=== PATIENT | male | born 1940 | race Caucasian/White ===

== ENCOUNTER 2019-04-26 15:18 | Emergency (ER) | payer MEDICARE, MEDICAID ==
[2019-04-26] MEDS ORDERED: Sodium Chloride 0.9% 10 ML Syringe FLUSH PRN (15:23)
[2019-04-26] MEDS ORDERED: methylPREDNISolone Sodium Succinate 125 MG/2 ML SDV IVPUSH ONE (15:23)
[2019-04-26] MEDS ORDERED: Sodium Chloride 0.9% 1,000 ML IV ONE (15:23)
[2019-04-26] MEDS ORDERED: Sodium Chloride 0.9% 2.5 ML Syringe FLUSH PRN (15:23)
[2019-04-26] MEDS ORDERED: Albuterol/Ipratropium 3.0-0.5 MG/3 ML Neb Soln NEB ONE ×3 (15:23→16:31)
[2019-04-26] MEDS ORDERED: Albuterol/Ipratropium 3.0-0.5 MG/3 ML Neb Soln ONE (15:24)
--- NOTE | 2019-04-26 15:29 | EDM.PDOC ---
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 Patient states he usually gets steroids and has not been on steroids for quite a long time. Review of systems: As per history of present illness and below otherwise all systems reviewed and negative. Past medical history: As per history of present illness and as reviewed below otherwise noncontributory. Surgical history: As per history of present illness and as reviewed below otherwise noncontributory. Social history: No reported history of drug or alcohol abuse. Family history: As per history of present illness and as reviewed below otherwise noncontributory. Physical exam: General: Well developed, well nourished in NAD HEENT: Atraumatic, normocephalic, pupils reactive, negative for conjunctival pallor or scleral icterus, mucous membranes moist, throat clear, neck supple, nontender, trachea midline. Lungs: Clear to auscultation, breath sounds equal bilaterally, chest nontender. Heart: S1S2, regular, negative for clicks, rubs, or JVD. Abdomen: NABS, Soft, nondistended, nontender. Negative for masses or hepatosplenomegaly. Negative for costovertebral tenderness. Pelvis: Stable nontender. Genitourinary: Deferred. Rectal: Deferred. Extremities: Atraumatic, negative for cords or calf pain. Neurovascular unremarkable. Neuro: Awake, alert, oriented. Cranial nerves II through XII unremarkable. Cerebellum unremarkable. Motor and sensory unremarkable throughout. Exam nonfocal. Skin:warm and dry Diagnostics: EKG, chest x-ray, CBC, chemistry, troponin Therapeutics: DuoNeb, Solu-Medrol, IV fluids, albuterol ED Course: improved-she prefers to go home rather than be admitted for observation Impression: OPD exacerbation Prescriptions: prednisone 20 mg 5 day burst Plan: Take meds as directed, follow up with your primary care physician, return to ER if symptoms worsen or change. Definitive disposition and diagnosis as appropriate pending reevaluation and review of above. - Related Data Allergies Allergy/AdvReac Type Severity Reaction Status Date / Time No Known Allergies Allergy Verified 04/26/19 15:24 Home Meds: Home Meds Albuterol [Ventolin HFA] 2 puff INH Q4H PRN 04/26/19 [History] Fluticasone/Vilanterol [Breo Ellipta 200-25 MCG Inhalation Kit] 1 puff BID 04/26 [History] Simvastatin 10 mg PO DAILY 04/26/19 [History] predniSONE [Prednisone] 20 mg PO DAILY #5 tablet 04/26/19 [Rx] ED ROS GENERAL - Review of Systems Review Of Systems: See Below ED EXAM, GENERAL - Physical Exam Exam: See Below Course - Vital Signs Last Recorded V/S: Last Vital Signs Temp 98.4 F 04/26/19 15:22 Pulse 94 04/26/19 17:03 Resp 24 H 04/26/19 15:22 BP 165/80 H 04/26/19 17:03 Pulse Ox 97 04/26/19 17:03 - Orders/Labs/Meds Orders: Active Orders 24 hr Category Date Time Status Cardiac Monitoring [RC] . DIRECTED Care 04/26/19 15:22 Active EKG Documentation Completion [RC] STAT Care 04/26/19 15:22 Active Oxygen Therapy, ED [RC] ASDIRECTED Care 04/26/19 15:22 Active RT Aerosol Therapy [RC] ASDIRECTED Care 04/26/19 15:23 Active RT Aerosol Therapy [RC] ASDIRECTED Care 04/26/19 16:22 Inactive RT Aerosol Therapy [RC] ASDIRECTED Care 04/26/19 16:30 Active RT Aerosol Therapy [RC] ASDIRECTED Care 04/26/19 16:31 Active Saline Lock Insert [OM.PC] Stat Oth 04/26/19 15:22 Ordered Labs: Laboratory Tests 04/26/19 04/26/19 04/26/19 Range/Units 15:45 15:45 15:45 WBC 4.49 (4.0-11.0) K/uL RBC 5.06 (4.50-5.90) M/uL Hgb 14.5 (13.0-17.0) g/dL Hct 43.5 (38.0-50.0) % MCV 86.0 (80.0-98.0) fL MCH 28.7 (27.0-32.0) pg MCHC 33.3 (31.0-37.0) g/dL RDW Std Deviation 42.5 (28.0-62.0) fl RDW Coeff of Celina 14 (11.0-15.0) % Plt Count 211 (150-400) K/uL MPV 10.30 (7.40-12.00) fL Neut % (Auto) 59.7 (48.0-80.0) % Lymph % (Auto) 23.6 (16.0-40.0) % [place] % (Auto) 11.8 (0.0-15.0) % Eos % (Auto) 4.7 (0.0-7.0) % Baso % (Auto) 0.2 (0.0-1.5) % Neut # (Auto) 2.7 (1.4-5.7) K/uL Lymph # (Auto) 1.1 (0.6-2.4) K/uL [place] # (Auto) 0.5 (0.0-0.8) K/uL Eos # (Auto) 0.2 (0.0-0.7) K/uL Baso # (Auto) 0.0 (0.0-0.1) K/uL Nucleated RBC % 0.0 /100WBC Nucleated RBCs # 0 K/uL Sodium 145 (136-148) mmol/L Potassium 3.8 (3.5-5.1) mmol/L Chloride 107 (98-107) mmol/L Carbon Dioxide 28.9 (21.0-32.0) mmol/L BUN 14 (7.0-18.0) mg/dL Creatinine 0.9 (0.8-1.3) mg/dL Est Cr Clr Drug Dosing 52.92 mL/min Estimated GFR (MDRD) > 60.0 ml/min Glucose 124 H (74-106) mg/dL Calcium 8.7 (8.5-10.1) mg/dL Total Bilirubin 0.3 (0.2-1.0) mg/dL AST 17 (15-37) IU/L ALT 23 (14-63) IU/L Alkaline Phosphatase 77 (46-116) U/L Troponin I < 0.050 (0.000-0.056) ng/mL Total Protein 7.1 (6.4-8.2) g/dL Albumin 3.6 (3.4-5.0) g/dL Globulin 3.5 (2.6-4.0) g/dL Albumin/Globulin Ratio 1.0 (0.9-1.6) Meds: Medications Discontinued Medications Generic Name Dose Route Start Last Admin Trade Name Lloydq PRN Reason Stop Dose Admin Albuterol 2.5 mg 04/26/19 16:22 04/26/19 16:31 Proventil Neb Soln NEB 04/26/19 16:23 Not Given ONETIME ONE Albuterol/Ipratropium 3 ml 04/26/19 15:23 04/26/19 15:40 Duoneb 3.0-0.5 Mg/3 Ml NEB 04/26/19 15:24 3 ml ONETIME ONE Administration Albuterol/Ipratropium Confirm 04/26/19 15:24 04/26/19 15:41 Duoneb 3.0-0.5 Mg/3 Ml Administered 04/26/19 15:25 Not Given Dose 3 ml .ROUTE .STK-MED ONE Albuterol/Ipratropium 3 ml 04/26/19 16:30 04/26/19 16:31 Duoneb 3.0-0.5 Mg/3 Ml NEB 04/26/19 16:31 3 ml ONETIME ONE Administration Albuterol/Ipratropium 3 ml 04/26/19 16:31 04/26/19 16:42 Duoneb 3.0-0.5 Mg/3 Ml NEB 04/26/19 16:32 Not Given ONETIME ONE Sodium Chloride 1,000 mls @ 999 mls/hr 04/26/19 15:23 04/26/19 15:46 Normal Saline IV 04/26/19 16:23 999 mls/hr .Bolus ONE Administration Methylprednisolone Sodium Succinate 125 mg 04/26/19 15:23 04/26/19 15:40 Solu-Medrol IVPUSH 04/26/19 15:24 125 mg ONETIME ONE Administration Sodium Chloride 10 ml 04/26/19 15:23 04/26/19 15:40 Saline Flush FLUSH 10 ml ASDIRECTED PRN Administration Keep Vein Open Sodium Chloride 2.5 ml 04/26/19 15:23 04/26/19 15:40 Saline Flush FLUSH 2.5 ml ASDIRECTED PRN Administration Keep Vein Open Departure - Departure Time of Disposition: 16:49 Disposition: Home, Self-Care 01 Condition: Good Clinical Impression: COPD exacerbation - Discharge Information *PRESCRIPTION DRUG MONITORING PROGRAM REVIEWED*: Not Applicable *COPY OF PRESCRIPTION DRUG MONITORING REPORT IN PATIENT SANJAY: Not Applicable Prescriptions: predniSONE [Prednisone] 20 mg PO DAILY #5 tablet Instructions: Chronic Obstructive Pulmonary Disease Exacerbation, [id number] Referrals: Felix Adhikari MD [Primary Care Provider] - Forms: ED Department Discharge Additional Instructions: The following information is given to patients seen in the emergency department who are being discharged to home. This information is to outline your options for follow-up care. We provide all patients seen in our emergency department with a follow-up referral. The need for follow-up, as well as the timing and circumstances, are variable depending upon the specifics of your emergency department visit. If you don't have a primary care physician on staff, we will provide you with a referral. We always advise you to contact your personal physician following an emergency department visit to inform them of the circumstance of the visit and for follow-up with them and/or the need for any referrals to a consulting specialist. The emergency department will also refer you to a specialist when appropriate. This referral assures that you have the opportunity for follow-up care with a specialist. All of these measure are taken in an effort to provide you with optimal care, which includes your follow-up. Under all circumstances we always encourage you to contact your private physician who remains a resource for coordinating your care. When calling for follow-up care, please make the office aware that this follow-up is from your recent emergency room visit. If for any reason you are refused follow-up, please contact the [facility] Emergency Department at and asked to speak to the emergency department charge nurse. Take meds as directed, follow up with your primary care physician, return to ER if symptoms worsen or change. [facility] [address] [place] [id number] - My Orders Last 24 Hours: My Active Orders 04/26/19 15:22 Cardiac Monitoring [RC] . DIRECTED EKG Documentation Completion [RC] STAT Oxygen Therapy, ED [RC] ASDIRECTED Saline Lock Insert [OM.PC] Stat 04/26/19 15:23 RT Aerosol Therapy [RC] ASDIRECTED 04/26/19 16:22 RT Aerosol Therapy [RC] ASDIRECTED 04/26/19 16:30 RT Aerosol Therapy [RC] ASDIRECTED 04/26/19 16:31 RT Aerosol Therapy [RC] ASDIRECTED - Assessment/Plan Last 24 Hours: My Active Orders 04/26/19 15:22 Cardiac Monitoring [RC] . DIRECTED EKG Documentation Completion [RC] STAT Oxygen Therapy, ED [RC] ASDIRECTED Saline Lock Insert [OM.PC] Stat 04/26/19 15:23 RT Aerosol Therapy [RC] ASDIRECTED 04/26/19 16:22 RT Aerosol Therapy [RC] ASDIRECTED 04/26/19 16:30 RT Aerosol Therapy [RC] ASDIRECTED 04/26/19 16:31 RT Aerosol Therapy [RC] ASDIRECTED
--- NOTE | 2019-04-26 15:47 | CR ---
Chest: Frontal view of the chest was obtained utilizing portable technique. Comparison: No prior chest x-ray. Heart size and mediastinum are normal. Mild interstitial change is seen. Findings are most likely due to fibrosis but old films would be needed to confirm. Lungs otherwise are clear. Bony structures are grossly intact. Impression: 1. Interstitial change which most likely representing fibrosis although old chest x-ray would be needed to confirm. 2. Nothing acute is suspected on portable chest x-ray. Diagnostic code #2 MTDD
[2019-04-26 16:14] LABS: BLOOD UREA NITROGEN,BUN 14 mg/dL (7.0-18.0); CARBON DIOXIDE,CO2 28.9 mmol/L (21.0-32.0); CHLORIDE,CL 107 mmol/L (98-107); GLUCOSE RANDOM 124 mg/dL (74-106); POTASSIUM,K 3.8 mmol/L (3.5-5.1); SODIUM,NA 145 mmol/L (136-148)
[2019-04-26] MEDS ORDERED: Albuterol 0.083% 2.5 MG/3 ML Neb Soln NEB ONE (16:22)
== END 2019-04-26 17:04 | disposition home or self-care (01) ==
LOC: MW.ED 15:18
DX: J44.1 Chronic obstructive pulmonary disease with (acute) exacerbation (principal); Z79.51 Long term (current) use of inhaled steroids; Z79.52 Long term (current) use of systemic steroids; Z99.81 Dependence on supplemental oxygen
CPT/HCPCS: 36415; 71045; 80053; 84484; 85025; 93005; 94640; 96361; 96374; 99285; J2930; J7040; 99284; J7620-GY